=== PATIENT | female | born 1990 | race Asian ===

== ENCOUNTER 2021-01-17 09:35 | Emergency (ER) | payer OTHER ==
[~2021-01-17] VITALS: Ht 170.2 cm; Wt 64.3 kg
[2021-01-17 11:51] LABS: BASO % 0.5 % (0.0-1.0); EOS % 0.2 % (0.0-3.0); HEMATOCRIT 41.7 % (36.0-47.0); HEMOGLOBIN 14.2 g/dl (12.0-15.5); LYMPH # 1.4 10^3/uL (1.5-5.0); LYMPH % 24.8 % (24.0-44.0); MEAN CORPUSCULAR HEMOGLOBIN 32.2 pg (27.0-33.0); MEAN CORPUSCULAR HGB CONC 34.1 g/dl (32.0-36.5); MEAN CORPUSCULAR VOLUME 94.6 fl (80.0-96.0); MONO # 0.4 10^3/uL (0.0-0.8); MONO % 6.2 % (2.0-8.0); NEUTROPHILS # 3.9 10^3/uL (1.5-8.5); NEUTROPHILS % 68.1 % (36.0-66.0); PLATELET COUNT, AUTOMATED 235 10^3/uL (150-450); RED BLOOD COUNT 4.41 10^6/uL (4.00-5.40); WHITE BLOOD COUNT 5.8 10^3/uL (4.0-10.0)
[2021-01-17 13:30] VITALS: BP 126/78
== END 2021-01-17 13:40 | disposition home or self-care (01) ==
LOC: M ED 09:35
DX: O46.91 Antepartum hemorrhage, unspecified, first trimester (principal); Z3A.01 Less than 8 weeks gestation of pregnancy

== ENCOUNTER → 2021-01-23 | Outpatient (CLI) | payer OTHER ==
--- NOTE | 2021-01-23 10:36 | REP ---
INDICATION: PREG 1ST TRIM ? VIABILITY VS ECTOPIC. COMPARISON: None. TECHNIQUE: Transvesical and transvaginal scanning FINDINGS: Within the uterus there is an anechoic structure with increased echoes surrounding it consistent with a decidual reaction. Within the gestational sac which is slightly irregular there is echogenic material consistent with a pole the mean crown-rump length measurement of which is consistent with a 6 week 0 day gestational age. Based on neck, the estimated date of delivery is 09/18/2021. Doppler interrogation of the pole shows a heart rate of 99 beats per minute. Within the gestational sac there is a tiny anechoic structure consistent with a yolk sac. Adjacent to the developing chorion there is a crescent shaped area of decreased echoes which measures 2.3 x 0.8 x 1.7 cm. Small cysts are seen in each ovary. IMPRESSION: Early OB ultrasound as described above. Decreased echoes seen adjacent to the developing chorion which could be secondary to an area of chorionic nonfusion during this early stage of or a subchorionic hemorrhage. Follow-up to ensure resolution is suggested. <Electronically signed by Kory Calderon > 01/23/21 [id number]
== END ==
LOC: M RAD 08:53
PROVIDERS: ATTEND Obstetrics & Gynecology
DX: Z34.91 Encounter for supervision of normal pregnancy, unspecified, first trimester (principal); Z3A.01 Less than 8 weeks gestation of pregnancy

== ENCOUNTER 2021-06-21 10:20 | Emergency (ER) | payer OTHER ==
[~2021-06-21] VITALS: Ht 175.3 cm; Wt 68.2 kg
[2021-06-21 12:50] LABS: HEMATOCRIT 35.9 % (36.0-47.0); HEMOGLOBIN 12.4 g/dl (12.0-15.5); MEAN CORPUSCULAR VOLUME 96.2 fl (80.0-96.0); RED BLOOD COUNT 3.73 10^6/uL (4.00-5.40); WHITE BLOOD COUNT 6.4 10^3/uL (4.0-10.0)
[2021-06-21 12:51] LABS: BASO % 0.2 % (0.0-1.0); LYMPH # 0.8 10^3/uL (1.5-5.0); LYMPH % 12.6 % (24.0-44.0); MEAN CORPUSCULAR HEMOGLOBIN 33.2 pg (27.0-33.0); MEAN CORPUSCULAR HGB CONC 34.5 g/dl (32.0-36.5); MONO # 0.7 10^3/uL (0.0-0.8); MONO % 10.4 % (2.0-8.0); NEUTROPHILS # 4.8 10^3/uL (1.5-8.5); NEUTROPHILS % 76.2 % (36.0-66.0); PLATELET COUNT, AUTOMATED 166 10^3/uL (150-450)
[2021-06-21 13:20] LABS: ALBUMIN 3.2 GM/DL (3.2-5.2); ALT/SGPT 24 U/L (12-78); BILIRUBIN,TOTAL 0.3 MG/DL (0.2-1.0); BLOOD UREA NITROGEN 5 MG/DL (7-18); CARBON DIOXIDE LEVEL 27 MEQ/L (21-32); CHLORIDE LEVEL 106 MEQ/L (98-107); GLOMERULAR FILTRATION RATE > 60.0 (>60); GLUCOSE, FASTING 84 MG/DL (70-100); POTASSIUM SERUM 4.1 MEQ/L (3.5-5.1); SODIUM LEVEL 138 MEQ/L (136-145)
[2021-06-21 13:29] LABS: RSV AMPLIFICATION NEGATIVE (NEGATIVE)
--- NOTE | 2021-06-21 15:06 | REP ---
INDICATION: COVID+ requested by OB. COMPARISON: None. TECHNIQUE: Transabdominal scanning FINDINGS: Multiple ultrasonographic images of the gravid uterus shows a single living intrauterine gestation in the ander breech presentation. Doppler interrogation of the heart shows a heart rate of 153 beats per minute. The subjective amniotic fluid volume is within normal limits. The calculated amniotic fluid index is 11.8 with an expected range of 9.5-22.7. The placenta is fundal/posterior and not low-lying. There is a marginal cord insertion seen 5 mm from the placental edge. The cervix measures 3.9 cm in length and is closed. IMPRESSION: Limited OB ultrasound as described above. <Electronically signed by Kory Calderon > 06/21/21 [id number]
[2021-06-21 16:17] VITALS: BP 105/55
== END 2021-06-21 16:33 | disposition home or self-care (01) ==
LOC: M ED 10:20
DX: O98.512 Other viral diseases complicating pregnancy, second trimester (principal); U07.1 COVID-19; Z3A.26 26 weeks gestation of pregnancy

== ENCOUNTER 2021-09-01 05:14 | Inpatient (IN) | payer OTHER ==
[2021-09-01] VITALS (25 sets, daily range): BP systolic 99–119; BP diastolic 51–63
[~2021-09-01] VITALS: Ht 175.3 cm; Wt 70.1 kg
[2021-09-01] MEDS ORDERED: PRENTAB9 PO (05:49)
[2021-09-01] MEDS ORDERED: LR 500 ML IV STA (06:03)
[2021-09-01] MEDS ORDERED: LR 1,000 ML IV SCH ×3 (06:05→11:15)
[2021-09-01] MEDS ORDERED: LACTATED RINGER'S 1000 ML IV ONE (06:05)
[2021-09-01] MEDS ORDERED: ONDANSETRON 4MG/2ML VIAL ONE ×2 (07:19→10:22)
[2021-09-01] MEDS ORDERED: MORPHINE PRES-FREE INJ 10 MG/10 ML VIAL (J2274) ONE ×2 (07:19→09:53)
[2021-09-01] MEDS ORDERED: PHENYLephrine 500MCG 5ML (100MCG/ML) SYRINGE ONE ×2 (07:19→10:12)
[2021-09-01] MEDS ORDERED: ePHEDrine SULFATE 25 MG/5 ML(5MG/ML) SYRINGE ONE ×2 (07:19→10:12)
[2021-09-01 07:24] LABS: HEMATOCRIT 37.1 % (36.0-47.0); HEMOGLOBIN 13.2 g/dl (12.0-15.5); MEAN CORPUSCULAR HEMOGLOBIN 34.5 pg (27.0-33.0); MEAN CORPUSCULAR HGB CONC 35.6 g/dl (32.0-36.5); MEAN CORPUSCULAR VOLUME 96.9 fl (80.0-96.0); PLATELET COUNT, AUTOMATED 179 10^3/uL (150-450); RED BLOOD COUNT 3.83 10^6/uL (4.00-5.40); WHITE BLOOD COUNT 7.1 10^3/uL (4.0-10.0)
[2021-09-01] MEDS ORDERED: NALBUPHINE HCL 10 MG/ML AMP (J2300) IV PRN (07:55)
[2021-09-01] MEDS ORDERED: METOCLOPRAMIDE INJ 10MG/2ML VIAL (J2765 PER 1) IV PRN (07:55)
[2021-09-01] MEDS ORDERED: diphenhydrAMINE 50MG/ML VIAL (J1200) IV PRN (07:55)
[2021-09-01] MEDS ORDERED: NALOXONE INJ 0.4MG/1ML VIAL (J2310 PER 1MG) IV PRN ×2 (07:55)
[2021-09-01] MEDS ORDERED: ONDANSETRON 4MG/2ML VIAL IV PRN ×3 (07:55→11:15)
[2021-09-01] MEDS ORDERED: TERBUTALINE SULFATE 1 MG/ML VIAL (J3105) As Ordered ONE (08:05)
[2021-09-01] MEDS ORDERED: TERBUTALINE SULFATE 1 MG/ML VIAL (J3105) SC ONE (08:45)
[2021-09-01] MEDS: PRENATAL VITAMINS CHEWABLE TABLET PO SCH (09:00)
[2021-09-01] MEDS ORDERED: ceFAZolin SOD 1 GM in D5W MINI-BAG PLUS 50 ML IV STA (09:50)
[2021-09-01] MEDS ORDERED: BICITRA 30ML SOLN UDC As Ordered ONE (09:51)
[2021-09-01] MEDS ORDERED: ceFAZolin 2 GM/D5W 50 ML IV BAG (J0690 PER 500MG) As Ordered ONE (09:51)
[2021-09-01] MEDS ORDERED: fentaNYL 100 MCG/2 ML INJECTION ONE (10:03)
[2021-09-01] MEDS ORDERED: propofoL 200 MG/20 ML VIAL ONE (10:12)
[2021-09-01 10:19] LABS: CORD GAS ABE V -8.2; CORD GAS HCO3 V 20.6 MEQ/L; CORD GAS O2 SAT V 71.4 %; CORD GAS PCO2 V 55.1 mmHg; CORD GAS PH V 7.191 UNITS; CORD GAS PO2 V 32.6 mmHg; CORD GAS SBC V 17.4 MEQ/L; CORD GAS TCO2 V 22.3 MEQ/L
[2021-09-01] MEDS ORDERED: OXYTOCIN INJ 10 UNITS/ML VIAL (J2590) ONE ×5 (10:19)
[2021-09-01 10:21] LABS: CORD GAS ABE A -8.3; CORD GAS HCO3 A 20.2 MEQ/L; CORD GAS PCO2 A 52.8 mmHg; CORD GAS PH A 7.201 UNITS; CORD GAS PO2 A 66.6 mmHg; CORD GAS SBC A 17.9 MEQ/L; CORD GAS TCO2 A 21.8 MEQ/L
[2021-09-01] MEDS ORDERED: KETOROLAC 60MG 2ML VIAL ONE (10:22)
[2021-09-01] MEDS ORDERED: dexameTHASONE 4 MG/ML 1ML VIAL (J1100 PER 1MG) ONE (10:22)
[2021-09-01] MEDS ORDERED: ACETAMINOPHEN 1000MG 100ML IV BTL (OFIRMEV) (J0131 PER 10MG) ONE (10:37)
[2021-09-01] MEDS ORDERED: MEASLES,MUMPS,RUBELLA VACCINE INJ (MMR-II) (90707) SC SCH (11:00)
[2021-09-01] MEDS ORDERED: PROMETHAZINE 25 MG TAB PO PRN (11:00)
[2021-09-01] MEDS: ACETAMINOPHEN 500 MG TAB PO SCH ×3 (11:00→22:28)
[2021-09-01] MEDS ORDERED: RHOGAM 300 MCG (1500 IU) INJ (J2790) IM SCH (11:00)
[2021-09-01] MEDS ORDERED: SIMETHICONE 80MG CHEW TAB PO PRN (11:00)
[2021-09-01] MEDS ORDERED: oxyCODONE 5MG TAB PO PRN ×2 (11:00→11:15)
[2021-09-01] MEDS ORDERED: OXYTOCIN 30 UNITS IN 0.9% NaCl 500ML IV BAG (J2590) As Ordered ONE ×2 (11:01→13:23)
[2021-09-01] MEDS ORDERED: fentaNYL 100 MCG/2 ML INJECTION IV PRN (11:15)
[2021-09-01] MEDS: OXYTOCIN DRIP 30 UNITS in IV 1 EA IV SCH ×2 (12:18→13:30)
[2021-09-01] MEDS: LR 1,000 ML IV SCH ×2 (12:19→17:46)
[2021-09-01] MEDS: KETOROLAC 30 MG/ML 1ML VIAL IV SCH ×2 (15:58→21:58)
[2021-09-01] MEDS: DOCUSATE SODIUM 100MG CAPSULE PO SCH (20:13)
[2021-09-02 02:00] VITALS: BP 107/52
[2021-09-02] MEDS: ACETAMINOPHEN 500 MG TAB PO SCH ×4 (04:57→23:19)
[2021-09-02] MEDS: KETOROLAC 30 MG/ML 1ML VIAL IV SCH (04:57)
[2021-09-02 06:00] VITALS: BP 101/53
[2021-09-02] MEDS ORDERED: BICITRA 30ML SOLN UDC PO SCH (06:00)
[2021-09-02 07:27] LABS: HEMATOCRIT 21.6 % (36.0-47.0); MEAN CORPUSCULAR HEMOGLOBIN 34.1 pg (27.0-33.0); MEAN CORPUSCULAR HGB CONC 34.7 g/dl (32.0-36.5); MEAN CORPUSCULAR VOLUME 98.2 fl (80.0-96.0); PLATELET COUNT, AUTOMATED 144 10^3/uL (150-450); WHITE BLOOD COUNT 10.5 10^3/uL (4.0-10.0)
[2021-09-02 07:29] LABS: HEMOGLOBIN 7.5 g/dl (12.0-15.5)
[2021-09-02 10:00] VITALS: BP 91/51
[2021-09-02] MEDS: DOCUSATE SODIUM 100MG CAPSULE PO SCH ×2 (10:10→20:00)
[2021-09-02] MEDS: PRENATAL VITAMINS CHEWABLE TABLET PO SCH (10:10)
[2021-09-02] MEDS: IBUPROFEN 800 MG TAB PO SCH ×2 (12:39→20:02)
[2021-09-02 14:00] VITALS: BP 102/55
[2021-09-02] MEDS: oxyCODONE 5MG TAB PO PRN (16:00)
[2021-09-02 18:00] VITALS: BP 107/61
[2021-09-02 22:00] VITALS: BP 109/59
[2021-09-03] VITALS (13 sets, daily range): BP systolic 93–114; BP diastolic 51–71
[2021-09-03] MEDS: ACETAMINOPHEN 500 MG TAB PO SCH ×4 (04:56→23:58)
[2021-09-03] MEDS: IBUPROFEN 800 MG TAB PO SCH ×3 (04:56→21:11)
[2021-09-03] MEDS: PRENATAL VITAMINS CHEWABLE TABLET PO SCH (08:51)
[2021-09-03] MEDS: DOCUSATE SODIUM 100MG CAPSULE PO SCH ×2 (08:51→21:11)
[2021-09-03] MEDS: oxyCODONE 5MG TAB PO PRN (17:40)
[2021-09-04 02:00] VITALS: BP 116/70
[2021-09-04] MEDS: IBUPROFEN 800 MG TAB PO SCH ×2 (04:58→13:55)
[2021-09-04] MEDS: ACETAMINOPHEN 500 MG TAB PO SCH ×2 (04:58→11:23)
[2021-09-04 06:00] VITALS: BP 111/75
[2021-09-04] MEDS ORDERED: OXYC-517 PO (06:36)
[2021-09-04] MEDS ORDERED: IBUP80TA PO (06:36)
[2021-09-04] MEDS ORDERED: ACET-683 PO (06:36)
[2021-09-04] MEDS: DOCUSATE SODIUM 100MG CAPSULE PO SCH (08:42)
[2021-09-04] MEDS: PRENATAL VITAMINS CHEWABLE TABLET PO SCH (08:42)
[2021-09-04 10:00] VITALS: BP 109/62
[2021-09-04 14:00] VITALS: BP 117/70
== END 2021-09-04 16:45 | disposition home or self-care (01) | DRG 771 ==
LOC: M LDO 05:14 → M LDI 09:39 → M OBS 13:40
PROVIDERS: ADMIT Obstetrics & Gynecology; ATTEND Obstetrics & Gynecology
PROC: 10D00Z1 Extraction of Products of Conception, Low, Open Approach (ICD-10-PCS; principal; 2021-09-01 07:52)
PROC: 30233N1 Transfusion of Nonautologous Red Blood Cells into Peripheral Vein, Percutaneous Approach (ICD-10-PCS; 2021-09-03)
DX: O76 Abnormality in fetal heart rate and rhythm complicating labor and delivery (principal); O45.93 Premature separation of placenta, unspecified, third trimester; Z37.0 Single live birth; Z3A.37 37 weeks gestation of pregnancy; O32.1XX0 Maternal care for breech presentation, not applicable or unspecified; D64.9 Anemia, unspecified; O99.03 Anemia complicating the puerperium

== ENCOUNTER 2021-09-06 15:41 | Emergency (ER) | payer OTHER ==
[~2021-09-06] VITALS: Ht 175.3 cm; Wt 65.9 kg
[2021-09-06] MEDS ORDERED: METOCLOPRAMIDE INJ 10MG/2ML VIAL (J2765 PER 1) IV ONE (16:35)
[2021-09-06] MEDS ORDERED: NS 1,000 ML IV ONE (16:35)
[2021-09-06 17:46] LABS: BASO % 0.3 % (0.0-1.0); EOS # 0.1 10^3/uL (0.0-0.5); EOS % 0.9 % (0.0-3.0); HEMATOCRIT 33.1 % (36.0-47.0); HEMOGLOBIN 11.6 g/dl (12.0-15.5); LYMPH # 1.3 10^3/uL (1.5-5.0); LYMPH % 16.9 % (24.0-44.0); MONO # 0.4 10^3/uL (0.0-0.8); NEUTROPHILS # 5.6 10^3/uL (1.5-8.5); NEUTROPHILS % 76.2 % (36.0-66.0); PLATELET COUNT, AUTOMATED 207 10^3/uL (150-450); RED BLOOD COUNT 3.52 10^6/uL (4.00-5.40); WHITE BLOOD COUNT 7.4 10^3/uL (4.0-10.0)
[2021-09-06 17:58] LABS: INR 0.89; PROTHROMBIN TIME 12.4 SECONDS (12.7-14.5)
[2021-09-06 17:59] LABS: PARTIAL THROMBOPLASTIN TIME 30.3 SECONDS (25.9-37.0)
[2021-09-06 18:06] LABS: BLOOD UREA NITROGEN 13 MG/DL (7-18); C REACTIVE PROTEIN QUANTITATIV 1.14 MG/DL (0.00-0.30); CALCIUM LEVEL 9.2 MG/DL (8.5-10.1); CARBON DIOXIDE LEVEL 26 MEQ/L (21-32); CHLORIDE LEVEL 111 MEQ/L (98-107); CREATININE FOR GFR 0.58 MG/DL (0.55-1.30); GLOMERULAR FILTRATION RATE > 60.0 (>60); GLUCOSE, FASTING 84 MG/DL (70-100); SODIUM LEVEL 142 MEQ/L (136-145)
[2021-09-06 18:31] LABS: ERYTHROCYTE SEDIMENTATION RATE 54 mm/hr (0-20)
[2021-09-06 21:07] VITALS: BP 146/78
== END 2021-09-06 21:16 | disposition home or self-care (01) ==
LOC: M ED 15:41
DX: O89.4 Spinal and epidural anesthesia-induced headache during the puerperium (principal); R51.9 Headache, unspecified; Z98.891 History of uterine scar from previous surgery; Z79.899 Other long term (current) drug therapy
CPT/HCPCS: 80048; 83735; 85025; 85610; 85652; 85730; 86140; 87426; 96361; 96374; 99283; J2765

== ENCOUNTER → 2021-09-06 | Outpatient (CLI) | payer OTHER ==
[~2021-09-06] MED LIST: ACET-683 PO; IBUP80TA PO; OXYC-517 PO; PRENTAB9 PO
[2021-09-06 22:10] VITALS: BP 138/83
== END ==
LOC: M OPP 20:45
PROVIDERS: ATTEND Anesthesiology
DX: G97.1 Other reaction to spinal and lumbar puncture (principal)

== ENCOUNTER 2022-12-04 08:57 | Emergency (ER) | payer OTHER ==
[~2022-12-04] VITALS: Ht 175.3 cm; Wt 59.7 kg
[2022-12-04 09:45] LABS: BASO % 0.8 % (0.0-1.0); EOS % 0.8 % (0.0-3.0); HEMATOCRIT 40.7 % (36.0-47.0); HEMOGLOBIN 13.9 g/dl (12.0-15.5); LYMPH # 1.2 10^3/uL (1.5-5.0); LYMPH % 31.6 % (24.0-44.0); MEAN CORPUSCULAR HEMOGLOBIN 32.1 pg (27.0-33.0); MEAN CORPUSCULAR HGB CONC 34.2 g/dl (32.0-36.5); MONO # 0.2 10^3/uL (0.0-0.8); MONO % 5.6 % (2.0-8.0); NEUTROPHILS # 2.3 10^3/uL (1.5-8.5); NEUTROPHILS % 60.9 % (36.0-66.0); PLATELET COUNT, AUTOMATED 198 10^3/uL (150-450); RED BLOOD COUNT 4.33 10^6/uL (4.00-5.40); WHITE BLOOD COUNT 3.8 10^3/uL (4.0-10.0)
[2022-12-04 10:02] LABS: BLOOD UREA NITROGEN 17 MG/DL (9-23); CALCIUM LEVEL 9.4 MG/DL (8.5-10.1); CARBON DIOXIDE LEVEL 28 MMOL/L (20-31); CHLORIDE LEVEL 106 MMOL/L (98-107); CREATININE FOR GFR 0.76 MG/DL (0.55-1.30); GLOMERULAR FILTRATION RATE > 60.0 (>60); GLUCOSE, FASTING 86 MG/DL (60-100); HCG, SERUM QUANTITATIVE 49.1 MIU/ML (<4.2); POTASSIUM SERUM 3.8 MMOL/L (3.5-5.1); SODIUM LEVEL 140 MMOL/L (136-145)
[2022-12-04 12:10] VITALS: BP 101/65; TEMP 98.7; O2SAT 98
== END 2022-12-04 13:39 | disposition home or self-care (01) ==
LOC: M ED 08:57
DX: O03.9 Complete or unspecified spontaneous abortion without complication (principal); Z79.810 Long term (current) use of selective estrogen receptor modulators (SERMs)